=== PATIENT | male | born 1940 | race Caucasian/White ===

== ENCOUNTER 2019-08-26 13:38 | Emergency (ER) | payer OTHER ==
[2019-08-26 13:44] VITALS: BP 119/63; PULSE 78; TEMP 97.5; BMI 22.6
[2019-08-26 14:29] LABS: BASO % 2.6 % (0-2.0); EOS % 2.2 % (0-4.5); HEMATOCRIT 40.5 % (35.4-49); HEMOGLOBIN 13.8 GM/dL (11.7-16.9); MCHC 34.1 g/dl (32.0-35.9); NEUT % 71.2 % (42.8-82.8); PLATELET COUNT 255 K/MM3 (134-434); RBC 4.31 M/mm3 (4.00-5.60); RDW 13.3 % (11.9-15.9); WHITE BLOOD COUNT 7.8 K/mm3 (4.0-10.0)
--- NOTE | 2019-08-26 14:51 | PDOC ---
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 The dizziness began last night and would terminate within 1 minute with lying still. Onset would occur with sudden changes in position. Denies the following: trauma, visual disturbance, fevers, nausea, vomiting, ears/nose/throat pain, neck pain, chest pain, SOB, and leg pain/swelling. Denies palpitations. Denies FND, seizures. Allergies: NKDA Social: Denies tobacco, alcohol, and substance abuse. Past History - Past Medical History Allergies/Adverse Reactions: Allergies Allergy/AdvReac Type Severity Reaction Status Date / Time No Known Allergies Allergy Verified 08/26/19 13:44 Home Medications: Ambulatory Orders Amlodipine Besylate 10 mg PO DAILY 08/26/19 Meclizine HCl [Antivert -] 12.5 mg PO TID #21 tablet 08/26/19 Tramadol HCl 50 mg PO Q6H 08/26/19 Zolpidem Tartrate 10 mg PO HS 08/26/19 COPD: No HTN: Yes - Psycho Social/Smoking Cessation Hx Smoking History: Never smoked Review of Systems - Review of Systems Able to Perform ROS?: Yes Is the patient limited Bel[place]ian proficient: No Constitutional: No: Chills, Diaphoresis, Fever, Weakness HEENTM: No: Eye Pain, Ear Pain, Nose Pain, Throat Pain, Mouth Pain Respiratory: No: Cough, Shortness of Breath, Hemoptysis Cardiac (ROS): No: Chest Pain, Lightheadedness, Palpitations, Syncope ABD/GI: No: Constipated, Diarrhea, Nausea, Rectal Bleeding, Vomiting, Tarry Stools : No: Burning, Dysuria, Hematuria, Incontinence Musculoskeletal: No: Back Pain, Joint Pain, Neck Pain Integumentary: No: Bruising, Erythema, Rash Neurological: Yes: Dizziness. No: Headache, Numbness, Tingling, Tremors Psychiatric: No: Change in Appetite Endocrine: No: Unexplained Weight Gain Hematologic/Lymphatic: No: Anemia *Physical Exam - Vital Signs Last Vital Signs Temp Pulse Resp BP Pulse Ox 97.5 F L 78 18 119/63 98 08/26/19 13:40 08/26/19 13:40 08/26/19 13:40 08/26/19 13:40 08/26/19 14:18 - Physical Exam General Appearance: Yes: Nourished, Appropriately Dressed. No: Apparent Distress, Intoxicated HEENT: positive: EOMI, ADRIEN, Normal Voice, Symmetrical, Pharynx Normal, Hearing Grossly Normal. negative: Pale Conjunctivae, Scleral Icterus (R), Scleral Icterus (L), Muffled/Hoarse voice, Pharyngeal Erythema, Tonsillar Exudate, Tonsillar Erythema, Excessive drooling Neck: positive: Trachea midline, Supple. negative: Tender, Lymphadenopathy (R) , Lymphadenopathy (L), Tender lateral, Tender midline Respiratory/Chest: positive: Lungs Clear, Normal Breath Sounds, Other (post surgical lesion for neoplasm removal on sternum). negative: Chest Tender, Respiratory Distress, Accessory Muscle Use Cardiovascular: positive: Regular Rhythm, Regular Rate, S1, S2. negative: Systolic Murmur Gastrointestinal/Abdominal: positive: Normal Bowel Sounds, Flat, Soft. negative : Tender, Distended, Guarding Lymphatic: negative: Adenopathy Musculoskeletal: positive: Normal Inspection. negative: CVA Tenderness, Vertebral Tenderness Extremity: positive: Normal Capillary Refill, Normal Inspection, Normal Range of Motion. negative: Tender, Swelling, Calf Tenderness Integumentary: positive: Normal Color, Dry, Warm. negative: Swelling, Ecchymosis Neurologic: positive: detention worker II-XII NML intact, Fully Oriented, Alert, Normal Mood/ Affect, Normal Response, Motor Strength 5/5, Other (positive mary hernandez-pike). 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 Initial vitals; Initial Vital Signs Temp Pulse Resp BP Pulse Ox 97.5 F L 78 18 119/63 97 08/26/19 13:40 08/26/19 13:40 08/26/19 13:40 08/26/19 13:40 08/26/19 13:40 Work up: ddx: vertigo. unlikely to be intracranial process given lack of trauma. patient states the room spins to the right on examination. positive mary hernandez pike. Laboratory Tests 08/26/19 08/26/19 08/26/19 14:22 14:22 14:22 WBC 7.8 RBC 4.31 Hgb 13.8 Hct 40.5 MCV 94.0 MCH 32.0 MCHC 34.1 RDW 13.3 Plt Count 255 MPV 8.0 Absolute Neuts (auto) 5.5 Neutrophils % 71.2 Lymphocytes % 17.0 Monocytes % 7.0 Eosinophils % 2.2 Basophils % 2.6 H Nucleated RBC % 0 PT with INR 12.50 INR 1.06 Sodium 138 Potassium 3.7 Chloride 103 Carbon Dioxide 30 Anion Gap 4 L BUN 17.0 Creatinine 0.9 Est GFR (CKD-EPI)AfAm 93.82 Est GFR (CKD-EPI)NonAf 80.95 Random Glucose 102 Calcium 8.8 Total Bilirubin 0.4 AST 16 ALT 19 Alkaline Phosphatase 67 Total Protein 6.3 L Albumin 3.5 labs within normal limits. patients symptoms improved with meclizine neurology referral given and the patient prescribed meclizine. patient to be discharged. able to walk on their own volition. no dizziness event noted. Dispo: Discharge Discharge - Discharge Information Problems reviewed: Yes Clinical Impression/Diagnosis: Vertigo Condition: Good Disposition: HOME - Additional Discharge Information Prescriptions: Meclizine HCl [Antivert -] 12.5 mg PO TID #21 tablet - Follow up/Referral Referrals: ON STAFF,NOT [Primary Care Provider] - [facility] [place] [facility] [place] [Provider Group] Siria Aviles MD [Staff Physician] - - Patient Discharge Instructions Patient Printed Discharge Instructions: DI for Vertigo Additional Instructions: You were seen in the emergency department for your dizziness. Please return to the emergency department if you have worsening symptoms or new concerning symptoms. Please take the medication as prescribed. Please follow up with the neurologist within 1 week after discharge. Thank you. Print Language: SRI LANKAN - Post Discharge Activity
[2019-08-26 14:53] LABS: INR 1.06 (0.83-1.09); PROTHROMBIN TIME (PATIENT) 12.5 SEC (9.7-13.0)
[2019-08-26 14:58] LABS: ALBUMIN 3.5 g/dl (3.4-5.0); BILIRUBIN,TOTAL 0.4 mg/dL (0.2-1); CALCIUM 8.8 mg/dL (8.5-10.1); CREATININE 0.9 mg/dL (0.55-1.3); POTASSIUM 3.7 mmol/L (3.5-5.1); TOT PROT 6.3 g/dl (6.4-8.2)
--- NOTE | 2019-08-26 15:07 | PDOC ---
Attending Attestation - Resident Resident Name: Francois Fonseca - ED Attending Attestation I have performed the following: I have examined & evaluated the patient, The case was reviewed & discussed with the resident, I agree w/resident's findings & plan - HPI HPI: 08/26/19 15:06 78-year-old male with history of hypertension, anxiety presenting with acute onset of vertigo since last night, worse with head movements and turning, self resolves after less than 1 minute. No trauma, no fevers or chills, no neck pain , no focal neurologic changes, no seizure or syncope. - Physicial Exam PE: 08/26/19 15:05 Agree with the resident's HPI and PE as documented in the electronic medical record. NAD, well appearing, EOMI, PERRL, nl conjunctiva, anicteric; b/l TM clear. neck supple. lungs clear, RRR, abdomen soft nontender. no rebound, guarding. Back nontender. BAUM x4, no focal neuro deficits. No peripheral edema. normal color for ethnicity, WWP. CN II-XII intact, speech clear. +mary hallpike to the left 08/26/19 22:12 - Medical Decision Making 08/26/19 15:06 Vital Signs Temp Pulse Resp BP Pulse Ox 97.5 F L 78 18 119/63 98 08/26/19 13:40 08/26/19 13:40 08/26/19 13:40 08/26/19 13:40 08/26/19 14:18 ddx vertigo, peripheral vs central, anemia, electrolyte abnormalities most likely peripheral with bedside neuro exam/findings mary hallpike positive with unilateral manipulation. no ct indicated meclizine, prn. toradol for leg pain neuro intact, ambulatory, min symptomatic unless head movements initiated Pt to be discharged in stable condition. Patient and family made aware of clinical impression, treatment recommendations and disposition plan, return precautions discussed (including but not limited to new or persistent/worsening symptoms, pain, fevers, or signs of infection, chest pain, respiratory distress , inability to tolerate oral intake, dehydration, syncope, or neurologic changes ). Follow up with PMD and/or neuro specialist as recommended, follow up information provided, take medications as instructed for duration of time. continue with supportive care, avoid triggers and precipitants. All questions answered to patient's satisfaction and expressed understanding and comfort with this. At the time of discharge, the patient is alert, clinically improved, tolerating po and verbalizes understanding of instructions, satisfied with the care received and felt comfortable with the plan. Patient does not suffer from an acute life-threatening medical condition at this time and is safe for outpatient follow-up. 08/26/19 15:58
[2019-08-26] MEDS ORDERED: MECLIZINE HCL 25 MG TABLET (FP) PO ONE (15:31)
[2019-08-26] MEDS ORDERED: KETOROLAC TROMETHAMINE 15 MG/ML VIAL IVPUSH ONE (15:31)
[2019-08-26] MEDS ORDERED: KETOROLAC TROMETHAMINE 15 MG/ML VIAL ONE (16:11)
[2019-08-26] MEDS ORDERED: MECLIZINE HCL 25 MG TABLET (FP) ONE (16:11)
== END 2019-08-26 16:54 | disposition home or self-care (01) ==
LOC: JER 13:38
PROC: 3E0333Z Introduction of Anti-inflammatory into Peripheral Vein, Percutaneous Approach (ICD-10-PCS; principal; 2019-08-26)
DX: R42 Dizziness and giddiness (principal); M54.32 Sciatica, left side; I10 Essential (primary) hypertension; F41.9 Anxiety disorder, unspecified; Z85.828 Personal history of other malignant neoplasm of skin; Z98.890 Other specified postprocedural states
CPT/HCPCS: 36415; 80053; 85025; 85610; 96374; 99284-25